=== PATIENT | male | born 2000 | race Caucasian/White ===

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

== ENCOUNTER 2022-07-15 19:01 | Emergency (ER) | payer MEDICAID, SELFPAY ==
[2022-07-15 19:13] VITALS: BP 148/76; PULSE 96; RESP 16; TEMP 36.8; O2SAT 99
--- NOTE | 2022-07-15 19:50 | W.ED.GENAD ---
Discharge Plan Disposition Patient Disposition: HOME Condition: Stable Discharge Details Clinical Impression: Coital headache Primary Care Provider: Florence Veliz ED Provider: Wayne Schneider Home Meds and New Rx's Prescriptions: Continued epinephrine [EpiPen 2-Roberto] 0.3 mg/0.3 mL auto-injector 0.3 mg IM Q5-15M PRN (Reason: hypersensitivity reaction) Qty: 1 2RF Rx Instructions: use as needed for allergic reaction- lip or throat swelling albuterol sulfate 2.5 mg /3 mL (0.083 %) solution for nebulization 2.5 mg Inhalation Q4H PRN Qty: 1 0RF albuterol sulfate [ProAir HFA] 90 mcg/actuation HFA aerosol inhaler 2 puff Inhalation Q4H PRN Qty: 1 0RF Vyvanse 70 mg capsule 70 mg PO QAM MDD 1 Qty: 30 0RF benzonatate 100 mg capsule 100 mg PO TID PRN (Reason: cough) Qty: 10 0RF Discharge Instructions Instructions: General Headache (ED) Additional Instructions: [id number] Tylenol and/or Motrin as directed for discomfort. Please watch for new or worsening symptoms and return to the ER for any concerns. At this time we discussed obtaining advanced imaging for further evaluation but using shared decision making have opted to take a more conservative approach. As we discussed please contact your primary care provider on Sunday to discuss your ER visit and need for outpatient reevaluation. There are medications on a daily basis that can help with this if this continues, outpatient referral to neurology may be indicated, as well as more aggressive work-up such as advanced imaging. Discharge Data Discharge Date/Time-TO BE ENTERED AT DEPARTURE: 07/15/22 20:12 Medical Decision Making 21-year-old gentleman who denies significant past medical history reports that he developed a headache both today and yesterday after orgasm. Reports that both episodes of the headache lasted no more than half an hour or so and resolved with vroj-dnm-malfzzo medication. He is currently asymptomatic. Denies family history of CVA, aneurysm, etc. Reports his mother does have migraines and he had migraines in high school but these seem to have resolved. Patient does tell me that he has a primary care provider. Clinically he appears well, nontoxic, neurologically intact. HPI and examination is certainly consistent with a colloidal headache but we did discuss pursuing advanced imaging for further evaluation. We discussed pros and cons of imaging, radiation, etc. At this time he is asymptomatic and is comfortable pursuing a more conservative approach. He would like to avoid any radiation if at all possible. He will continue to monitor symptoms closely and discussed following up with his primary care provider for potential outpatient work-up, imaging, referral to neurology. He does assure me he will return to the ER for new or evolving symptoms. Standard discharge and return precautions were provided. Patient understands, is agreeable to this plan, and has no additional questions or concerns upon discharge. This documentation was generated using [employer] system, please disregard any oddities of phrase or misspellings. Medical Records Medical records reviewed: Yes I reviewed the patient's medical records. HPI General Mode of arrival: ambulatory. Date/Time Provider Initiated Documentation: 07/15/22 19:06. Limitations to Documentation: no limitations. Information obtained by: patient. HPI Narrative: This is a 21-year-old male, denies significant past medical history, reports vaping daily, presenting to the ER for a headache that he developed both yesterday and today after reaching orgasm. Patient states that the headaches is moderate in nature, is present just as he is about to climax, and he is initially in the back of his head but then goes globally, decreases in severity down to a 4 out of 10, is aching, and then resolved completely with [id number]-ggktzvj medications. He is currently asymptomatic. Denies recent illness, trauma, visual changes, neck pain, chest pain, shortness of breath, radiation of his pain, pain in his extremities, numbness, tingling, weakness, pain or swelling in his legs. Patient reports that he had migraines fairly frequently in high school but seemed to have outgrown them in general until these headaches over the past 2 days. He currently has no acute concerns or complaints, is asymptomatic Related Data Home Medications Medication Instructions Recorded Confirmed albuterol sulfate 2.5 mg/3 mL 2.5 mg (3 mL) inhalation Q4H PRN 10/03/18 07/15/22 (0.083 %) solution for nebulization #1 mL albuterol sulfate 90 mcg/actuation 2 puff inhalation Q4H PRN ##1 04/02/20 07/15/22 aerosol inhaler (ProAir HFA) epinephrine 0.3 mg/0.3 mL 0.3 mg (0.3 mL) IM Q5-15M PRN 08/03/20 07/15/22 injection, auto-injector (EpiPen hypersensitivity reaction #1 ea 2-Roberto) benzonatate 100 mg capsule 100 mg PO TID PRN cough #10 caps 09/16/21 07/15/22 lisdexamfetamine 70 mg capsule 70 mg PO QAM #30 caps 01/26/22 07/15/22 (Vyvanse) Previous Rx's Medication Instructions Recorded albuterol sulfate 2.5 mg/3 mL 2.5 mg (3 mL) inhalation Q4H PRN 10/03/18 (0.083 %) solution for nebulization #1 mL albuterol sulfate 90 mcg/actuation 2 puff inhalation Q4H PRN ##1 04/02/20 aerosol inhaler (ProAir HFA) epinephrine 0.3 mg/0.3 mL 0.3 mg (0.3 mL) IM Q5-15M PRN 08/03/20 injection, auto-injector (EpiPen hypersensitivity reaction #1 ea 2-Roberto) benzonatate 100 mg capsule 100 mg PO TID PRN cough #10 caps 09/16/21 lisdexamfetamine 70 mg capsule 70 mg PO QAM #30 caps 01/26/22 (Vyvanse) Allergies Allergy/AdvReac Type Severity Reaction Status Date / Time shrimp Allergy Unknown Swelling/Ed Verified 07/15/22 19:16 jose daniel amoxicillin Allergy Hives Verified 07/15/22 19:16 black flies Allergy Mild Swelling/Ed Uncoded 07/15/22 19:16 jose daniel horse flies Allergy Mild Swelling/Ed Uncoded 07/15/22 19:16 jose daniel Lobster Allergy Unknown Swelling/Ed Uncoded 07/15/22 19:16 jose daniel General Stated Complaint: Headache LAVERN: 4 Review of Systems Constitutional Constitutional: Denies fever(s), Reports headache(s) and Denies weakness Eyes Eyes: Denies change in vision ENT Ears, Nose, Mouth, and Throat: Reports headache(s) and Denies neck pain Cardiovascular Cardiovascular: Denies chest pain and Denies dyspnea Respiratory Respiratory: Denies cough and Denies dyspnea Gastrointestinal Gastrointestinal: Denies abdominal pain, Denies nausea and Denies vomiting Musculoskeletal Musculoskeletal: Denies back pain, Denies neck pain, Denies numbness, Denies stiffness and Denies tingling Integumentary/Breasts Skin/Breast: Denies rash Neurologic Neurologic: Reports headache(s), Denies numbness, Denies tingling and Denies weakness PFS All Active Problems Coital headache (Acute) Hand laceration (Acute) Ingrown toenail of right foot with infection (Acute) Cough (Acute) Irregular heart beat (Acute) Nml holter monitor 01/26 Precordial catch syndrome (Acute) chest pain- on exam, irreg hb with some tachy, ekg obtained - School failure (Acute) DID NOT COMPLETE HIGH SHCOOL- will continue to try get GED and job -2020 Food allergy (Acute) 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- EPIPEN 07/27 Dental abscess (Acute) meds called in 02/24 had abscess same tooth last year Depression (Chronic) mild sadness and cutting will follow 01/25 Healthy adolescent (Acute) Attention deficit hyperactivity disorder (Chronic 12/27/12) Medical History ADHD (attention deficit hyperactivity disorder) Allergic rhinitis (03/07/14) Allergy to amoxicillin Anxiety Asthma BMI (body mass index), pediatric, 5% to less than 85% for age (08/01/16) Depression Exercise-induced asthma (08/01/16) Insomnia (09/23/13) Surgical History Circumcision Myringotomy w/ PE (pressure equalizing) tubes Tonsillectomy and adenoidectomy Urethral meatus, dorsal When he was 18 months old he had corrective surgery Family History Mother Asthma Mental disorder Father Mental disorder Sister Mental disorder Other Heart disease Hyperlipidemia Mental disorder Cancer Hypertension Asthma Grandparent Heart disease Hyperlipidemia Mental disorder Cancer Uterine, Breast Gastric Hypertension Asthma Diabetes Maternal Grandfather Myocardial infarction Maternal Grandmother Myocardial infarction Paternal Grandfather Myocardial infarction Social History Smoking/Tobacco Use Status: Former Tobacco Use Smoking risk assessment performed?: Yes Alcohol Intake: current Alcohol Intake frequency: holidays/special occasions only Drug use: Occasionally Substance use type: marijuana Pets and animals: Yes Pets and animals: cat(s) and dog(s) Do you feel safe at home: Yes Do you feel safe in your relationship?: Yes Additional Social history: FATHER Exam Const General: cooperative, healthy appearing, comfortable and no acute distress Orientation: alert, awake and oriented x3 HENMT Head: normal to inspection, normocephalic and atraumatic Ears: external ears normal, TM's normal bilaterally and EAC's normal General nose exam: external nose normal Face and sinus: normal facial exam Mouth: moist mucous membranes Throat: posterior oropharynx normal Eyes General: appearance normal, both eyes and all related structures Alignment and Position: alignment normal Periorbital: periorbital findings normal Eyelids: eyelids normal Conjunctivae: conjunctivae normal Sclera: sclerae normal Cornea: corneas normal Pupils: PERRL EOM: EOM intact bilaterally Direct ophthalmoscopy: normal light reflex Neck Neck: normal visual inspection, full ROM, no meningeal signs, trachea midline, supple and nontender Resp Effort & Inspection: normal respiratory effort and able to speak in complete sentences Auscultation: clear to auscultation bilaterally Cardio Rate: regular rate Rhythm: regular rhythm GI Palpation: soft and nontender Back/Spine/Pelvis Back: No back tenderness Skin General skin exam: no rashes or lesions noted Neuro General: patient alert, patient awake, patient oriented x3, moves all extremities and no focal motor deficits Cranial Nerves: CN's II-XI intact bilaterally Cognition: normal cognition Speech: speech normal Gait: normal gait Motor: muscle tone normal throughout, strength 5/5 throughout, no pronator drift, no movement abnormalities noted and no fasciculations Sensory Exam: no sensory deficits noted Coordination: ihuwku-re-msgf test normal, Romberg test normal and Does not sway with eyes open Psych Appearance: grossly normal Mental Status: mental status grossly normal Course Vital Signs Vital signs: Vital Signs Temperature 36.8 C 07/15/22 19:13 Pulse 96 H 07/15/22 19:13 Respiratory Rate 16 07/15/22 19:13 Blood Pressure 148/76 H 07/15/22 19:13 Pulse Oximetry 99 07/15/22 19:13 Temperature 36.8 C 07/15/22 19:13 Temperature Source Temporal Artery Scan 07/15/22 19:13 Pulse 96 H 07/15/22 19:13 Respiratory Rate 16 07/15/22 19:13 Respiratory Effort 07/15/22 19:13 Blood Pressure 148/76 H 07/15/22 19:13 Blood Pressure Position Sitting 07/15/22 19:13 Pulse Oximetry 99 07/15/22 19:13 Oxygen Delivery Method Room Air 07/15/22 19:13 Oxygen Flow Rate 0 07/15/22 19:13 Pain Level 1 07/15/22 19:13
== END 2022-07-15 20:12 | disposition home or self-care (01) ==
PROVIDERS: Emergency Provider Physician Assistant
DX: R51.9 Headache, unspecified (principal); J45.909 Unspecified asthma, uncomplicated; Z87.891 Personal history of nicotine dependence
CPT/HCPCS: 99282

== ENCOUNTER 2022-08-25 00:30 | Emergency (ER) | payer MEDICAID, SELFPAY ==
[2022-08-25] VITALS (52 sets, daily range): BP systolic 111–143; BP diastolic 76–97; PULSE 90–106; RESP 10–22; TEMP 36.8–37.1; O2SAT 96–100
--- NOTE | 2022-08-25 00:30 | RT.EKG_ITS ---
APPROVED REPORT Exam: Resting ECG Reason for Exam: chest pain Patient Location: E HR:117 bpm ECG Measurements Heart Rate 117 AXIS ND 147 P 57 QRSd 92 QRS 52 QT 328 T 18 QTc 458 Conclusion Sinus tachycardia...rate> 99 PHysician: no stemi
--- NOTE | 2022-08-25 00:30 | DI.RAD_ITS ---
Exam(s) XR PORTABLE CHEST AP EXAM: XR PORTABLE CHEST AP CLINICAL HISTORY: central chest pain. TECHNIQUE: 2D digital imaging was performed. COMPARISON: CR ABD FLAT UPRIGHT PA CHEST from 08/07/2017 FINDINGS: Single AP portable view. Heart size is upper normal. The mediastinum is not widened. Lungs are clear. No infiltrates nor obvious pleural effusions. IMPRESSION: No acute pulmonary findings on this single AP portable view of the chest. DATA REPOSITORY: RADIATION DOSE DELIVERED:
[2022-08-25 00:53] LABS: Abs Immature Grans 0.19 10^3/uL (0.0-0.06); Absolute Basophil Count 0.06 10^3/uL (0.0-0.2); Absolute Eosinophil Count 0.31 10^3/uL (0.0-0.7); Absolute Lymphocyte Count 3.21 10^3/uL (1.2-3.4); Absolute Monocyte Count 0.79 10^3/uL (0.1-0.8); Absolute Neutrophil Count 3.55 10^3/uL (1.2-6.7); Basophils % 0.7; Eosinophils % 3.8; HCT 46.6 % (40.0-50.0); Immature Grans % 2.3; Lymphocytes % 39.6; MCH 29.2 pg (27.0-33.0); MCHC 34.3 % (32.0-36.0); MCV 85 fL (80-95); MPV 9.2 fL (8.0-11.0); Monocytes % 9.7; Neutrophils % 43.9; Platelet Count 277 10^3/uL (130-400); RBC 5.48 10^6/uL (4.36-5.78); RDW 12.6 % (11.8-14.1); RDW-SD 39.2 fL; WBC 8.11 10^3/uL (4.4-10.8)
--- NOTE | 2022-08-25 01:10 | ED.GENADUL_ITS ---
Discharge Plan Disposition Patient Disposition: Home Condition: Good Discharge Details Chief Complaint: Chest Pain Clinical Impression: Chest discomfort Primary Care Provider: Florence Veliz ED Provider: Leonardo Guadarrama Home Meds and New Rx's Prescriptions: No Action epinephrine [EpiPen 2-Roberto] 0.3 mg/0.3 mL auto-injector 0.3 mg IM Q5-15M PRN (Reason: hypersensitivity reaction) Qty: 1 2RF Rx Instructions: use as needed for allergic reaction- lip or throat swelling albuterol sulfate 2.5 mg /3 mL (0.083 %) solution for nebulization 2.5 mg Inhalation Q4H PRN Qty: 1 0RF albuterol sulfate [ProAir HFA] 90 mcg/actuation HFA aerosol inhaler 2 puff Inhalation Q4H PRN Qty: 1 0RF Vyvanse 70 mg capsule 70 mg PO QAM MDD 1 Qty: 30 0RF benzonatate 100 mg capsule 100 mg PO TID PRN (Reason: cough) Qty: 10 0RF Discharge Instructions Instructions: Chest Pain (ED) Additional Instructions: At this time your work-up is very reassuring. There is no signs of heart failure, heart attack or other significant abnormality. Please take Tylenol or Motrin as needed for pain if it returns. If you notice any worsening of your symptoms, or any new symptoms such as vomiting, diarrhea, fever, chills, shortness of breath, chest pain, numbness, weakness, or fainting , please return immediately to the emergency department for reevaluation. Please follow up with your primary care provider as soon as possible for reassessment and reevaluation. As always, it was a pleasure participating in your medical care today. Referrals: Florence Veliz MD [Primary Care Provider] - Medical Decision Making 21-year-old male with a past medical history of asthma, presents today for evaluation of chest pain. Patient states that the symptoms have been going on for the last 22 hours. It is achy and tight in nature. It lasts for about 30 seconds to 1 minute. Seems to come and go. No exertional component. No recent trauma. No cough, fever, or chills. Patient does vape occasionally, but does not use regular tobacco products. He denies any history of blood clots pulmonary embolisms recent surgeries. Symptoms are improved when he sits up and leans forward. It does not appear to be made worse by anything. No other complaints at this time. No other modifying factors. Physical exam is notably unremarkable. Vital signs stable. No hypoxemia. Bedside ultrasound demonstrates no evidence of pericardial effusion, tamponade, signs of right heart strain, or large wall motion abnormalities. Differential is highest for mild pericarditis versus musculoskeletal component. EKG shows no evidence of STEMI or significant ST elevation. Will give Toradol, GI cocktail, evaluate for atypical cardiac etiology, evaluate for subtle heart strain with proBNP, monitor closely and reassess. 1:53 AM Laboratory work-up normal, troponin normal, proBNP normal, chest x-ray negative for acute process. Symptoms notably clinically inconsistent with ACS, massive PE, pneumothorax or other significant life-threatening abnormality. Suspect mild pericarditis versus precordial catch syndrome/ texidores twinge. Recommend Tylenol or Motrin at home as needed. Discussed red flags which to return. Patient's pain completely gone at time of disposition. I have extensively reviewed the treatment plan and discharge instructions with the patient. I have addressed all patient concerns at this time. The patient was made aware of what symptoms to monitor for that would warrant a return to the emergency department. Discussed the plan with the patient, they demonstrate verbal understanding and agreement with our assessment and plan at this time. The documentation in this chart was dictated using [employer] dictation software. Please excuse any dictation errors. FINDINGS: Lungs: Unremarkable. No consolidation. Pleural spaces: Unremarkable. No pleural effusion. No pneumothorax. Heart/Mediastinum: Unremarkable. No cardiomegaly. Bones/joints: Unremarkable. IMPRESSION: No acute findings. Thank you for allowing us to participate in the care of your patient. Dictated and Authenticated by: Eed Keenan MD 08/25/2022 1:46 AM Eastern Time ([place] & [place]) Sign Out No HPI General Date/Time Provider Initiated Documentation: 08/25/22 00:32 . HPI Narrative: 21-year-old male with a past medical history of asthma, presents today for evaluation of chest pain. Patient states that the symptoms have been going on for the last 22 hours. It is achy and tight in nature. It lasts for about 30 seconds to 1 minute. Seems to come and go. No exertional component. No recent trauma. No cough, fever, or chills. Patient does vape occasionally, but does not use regular tobacco products. He denies any history of blood clots pulmonary embolisms recent surgeries. Symptoms are improved when he sits up and leans forward. It does not appear to be made worse by anything. No other complaints at this time. No other modifying factors. Related Data Home Medications Medication Instructions Recorded Confirmed albuterol sulfate 2.5 mg/3 mL 2.5 mg (3 mL) inhalation Q4H PRN 10/03/18 08/25/22 (0.083 %) solution for nebulization #1 mL albuterol sulfate 90 mcg/actuation 2 puff inhalation Q4H PRN ##1 04/02/20 08/25/22 aerosol inhaler (ProAir HFA) epinephrine 0.3 mg/0.3 mL 0.3 mg (0.3 mL) IM Q5-15M PRN 08/03/20 08/25/22 injection, auto-injector (EpiPen hypersensitivity reaction #1 ea 2-Roberto) benzonatate 100 mg capsule 100 mg PO TID PRN cough #10 caps 09/16/21 07/15/22 lisdexamfetamine 70 mg capsule 70 mg PO QAM #30 caps 01/26/22 08/25/22 (Vyvanse) Previous Rx's Medication Instructions Recorded albuterol sulfate 2.5 mg/3 mL 2.5 mg (3 mL) inhalation Q4H PRN 10/03/18 (0.083 %) solution for nebulization #1 mL albuterol sulfate 90 mcg/actuation 2 puff inhalation Q4H PRN ##1 04/02/20 aerosol inhaler (ProAir HFA) epinephrine 0.3 mg/0.3 mL 0.3 mg (0.3 mL) IM Q5-15M PRN 08/03/20 injection, auto-injector (EpiPen hypersensitivity reaction #1 ea 2-Roberto) benzonatate 100 mg capsule 100 mg PO TID PRN cough #10 caps 09/16/21 lisdexamfetamine 70 mg capsule 70 mg PO QAM #30 caps 01/26/22 (Vyvanse) Allergies Allergy/AdvReac Type Severity Reaction Status Date / Time shrimp Allergy Unknown Swelling/Ed Verified 08/25/22 00:47 jose daniel amoxicillin Allergy Hives Verified 08/25/22 00:47 black flies Allergy Mild Swelling/Ed Uncoded 08/25/22 00:47 jose daniel horse flies Allergy Mild Swelling/Ed Uncoded 08/25/22 00:47 jose daniel Lobster Allergy Unknown Swelling/Ed Uncoded 08/25/22 00:47 jose daniel General Stated Complaint: Chest Pain LAVERN: 3 Review of Systems All systems reviewed & are unremarkable except as noted in HPI and below PFSH All Active Problems (Updated 08/25/22 @ 01:52 by Leonardo Guadarrama DO) Chest discomfort (Acute) Hand laceration (Acute) Ingrown toenail of right foot with infection (Acute) Cough (Acute) Irregular heart beat (Acute) Nml holter monitor 01/26 Precordial catch syndrome (Acute) chest pain- on exam, irreg hb with some tachy, ekg obtained - School failure (Acute) DID NOT COMPLETE HIGH SHCOOL- will continue to try get GED and job -2020 Food allergy (Acute) 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- EPIPEN 07/27 Dental abscess (Acute) meds called in 02/24 had abscess same tooth last year Depression (Chronic) mild sadness and cutting will follow 01/25 Healthy adolescent (Acute) Attention deficit hyperactivity disorder (Chronic 12/27/12) Medical History ADHD (attention deficit hyperactivity disorder) Allergic rhinitis (03/07/14) Allergy to amoxicillin Anxiety Asthma BMI (body mass index), pediatric, 5% to less than 85% for age (08/01/16) Depression Exercise-induced asthma (08/01/16) Insomnia (09/23/13) Surgical History Circumcision Myringotomy w/ PE (pressure equalizing) tubes Tonsillectomy and adenoidectomy Urethral meatus, dorsal When he was 18 months old he had corrective surgery Family History Mother Asthma Mental disorder Father Mental disorder Sister Mental disorder Other Heart disease Hyperlipidemia Mental disorder Cancer Hypertension Asthma Grandparent Heart disease Hyperlipidemia Mental disorder Cancer Uterine, Breast Gastric Hypertension Asthma Diabetes Maternal Grandfather Myocardial infarction Maternal Grandmother Myocardial infarction Paternal Grandfather Myocardial infarction Social History Smoking/Tobacco Use Status: Current-Occasional Tobacco Type: e-cigarettes Smoking risk assessment performed?: Yes Alcohol Intake: current Alcohol Intake frequency: holidays/special occasions only Drug use: Occasionally Substance use type: marijuana Pets and animals: Yes Pets and animals: cat(s) and dog(s) Do you feel safe at home: Yes Do you feel safe in your relationship?: Yes Additional Social history: FATHER Exam Narrative Exam Narrative: 1.Const: Well-nourished, Well-developed, appearing stated age 2.Eyes: PERRL, no conjunctival injection, and symmetrical lids. 3.ENT: Atraumatic external nose and ears. Moist MM. Neck: Symmetric, trachea midline, No thyromegaly. 4.CVS: +S1/S2, No murmurs or gallops. Peripheral pulses 2+ and equal in all extremities. Brisk capillary refill in all extremities. No reproducible chest wall tenderness. 5.RESP: Unlabored respiratory effort. Clear to auscultation bilaterally. No wheezes rales or rhonchi 6.GI: Soft, Nontender/Nondistended, No hepatosplenomegaly. No guarding or rebound. 7.MSK: Normocephalic/Atraumatic, Extremities w/o deformity or ttp No cyanosis or clubbing, Normal movement of all extremities 8.Skin: Warm, Dry. No rashes or lesions. 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 Sensation grossly intact, no focal neurologic deficits. 10.Psych: (AAO) x3. Appropriate mood and affect Course Vital Signs Vital signs: Vital Signs Temperature 37.1 C 08/25/22 00:35 Pulse 106 H 08/25/22 00:35 Respiratory Rate 20 08/25/22 00:35 Blood Pressure 143/89 H 08/25/22 00:35 Pulse Oximetry 100 08/25/22 00:35 Temperature 37.1 C 08/25/22 00:35 Pulse 106 H 08/25/22 00:35 Respiratory Rate 20 08/25/22 00:35 Respiratory Effort 08/25/22 00:50 Respiratory Depth Normal 08/25/22 00:50 Respiratory Pattern Normal 08/25/22 00:50 Blood Pressure 143/89 H 08/25/22 00:35 Blood Pressure Position Supine 08/25/22 00:35 Pulse Oximetry 100 08/25/22 00:35 Oxygen Delivery Method Room Air 08/25/22 00:35 Oxygen Flow Rate 0 08/25/22 00:35 Pain Level 5 08/25/22 00:50 Lab/Test Results Lab/Test Results: Laboratory Tests Range/Units 08/25/22 00:40 WBC (4.4-10.8) 10^3/uL 8.11 RBC (4.36-5.78) 10^6/uL 5.48 Hgb (13.5-17.5) g/dL 16.0 Hct (40.0-50.0) % 46.6 MCV (80-95) fL 85 MCH (27.0-33.0) pg 29.2 MCHC (32.0-36.0) % 34.3 RDW (11.8-14.1) % 12.6 Plt Count (130-400) 10^3/uL 277 MPV (8.0-11.0) fL 9.2 Immature Gran % 2.3 Neutrophils % 43.9 Lymphocytes % 39.6 Monocytes % 9.7 Eosinophils % 3.8 Basophils % 0.7 Nucleated RBC % (0.0-0.3) % 0.0 Absolute Neutrophils (1.2-6.7) 10^3/uL 3.55 Absolute Lymphocytes (1.2-3.4) 10^3/uL 3.21 Absolute Monocytes (0.1-0.8) 10^3/uL 0.79 Absolute Eosinophils (0.0-0.7) 10^3/uL 0.31 Absolute Basophils (0.0-0.2) 10^3/uL 0.06 POCUS Exam (ED) Limited Cardiac Exam DATE OF EXAM: 08/25/22 TIME OF EXAM: 01:15 PROVIDER THAT PERFORMED THE STUDY: Leonardo Guadarrama IS THIS A REPEAT EXAM DURING THIS ENCOUNTER: no REASON FOR EXAM: Chest pain VISUALIZED STRUCTURES: Left atrium, Left ventricle, Right ventricle and Interventricular septum VIEW OBTAINED: Parasternal long-axis and Parasternal short-axis PERTINENT FINDINGS/IMPRESSION: No apparent abnormalities Exam complete
[2022-08-25] MEDS: Ketorolac 15 MG/ML VIAL IVP (01:15)
[2022-08-25] MEDS: Lidocaine 2% Viscous 1 ML Solution (01:16)
[2022-08-25 01:17] LABS: ALT 79 U/L (16-63); AST 30 U/L (15-37); Albumin 4.3 g/dL (3.4-5.0); Alkaline Phosphatase 63 U/L (46-116); Anion Gap 9.1 mmol/L (3-11); BUN 16 mg/dL (7-18); CO2 29.9 mmol/L (21.0-32.0); CREATININE 1.2 mg/dL (0.70-1.30); Calcium 8.7 mg/dL (8.5-10.1); Chloride 100 mmol/L (98-107); Estimated GFR 89.34 (mL/min/1.73m2); Glucose 108 mg/dL (74-106); NT-proBNP 7 pg/mL (<300); Potassium 3.7 mmol/L (3.5-5.1); Sodium 139 mmol/L (136-145); Total Protein 7.6 g/dL (6.4-8.2); Troponin I < 50 ng/L (<or=60)
[2022-08-25] MEDS: Mylanta Suspension 30 ML CUP (01:19)
--- NOTE | 2022-08-25 01:48 | DI.VRAD_ITS ---
PROCEDURE INFORMATION: Exam: XR Chest Exam date and time: 08/25/2022 1:05 AM Age: 21 years old Clinical indication: Chest wall pain; Additional info: Chest pain TECHNIQUE: Imaging protocol: Radiologic exam of the chest. Views: 1 view. COMPARISON: CR ABD FLAT UPRIGHT PA CHEST 08/07/2017 2:40 PM FINDINGS: Lungs: Unremarkable. No consolidation. Pleural spaces: Unremarkable. No pleural effusion. No pneumothorax. Heart/Mediastinum: Unremarkable. No cardiomegaly. Bones/joints: Unremarkable. IMPRESSION: No acute findings. Dictated and Authenticated by: Ede Keenan MD. Ordering:RICK Patterson MD
== END 2022-08-25 01:59 | disposition home or self-care (01) ==
PROVIDERS: Emergency Provider Student in an Organized Health Care Education/Training Program
DX: R07.89 Other chest pain (principal); J45.990 Exercise induced bronchospasm; F90.9 Attention-deficit hyperactivity disorder, unspecified type; F17.290 Nicotine dependence, other tobacco product, uncomplicated
CPT/HCPCS: 80053; 93005; 93308; 96374; 99284; 71045; 83880; 84484; 85025; 93010; 99285; J1885

== ENCOUNTER 2022-10-14 02:34 | Emergency (ER) | payer MEDICAID, SELFPAY ==
[2022-10-14 02:39] VITALS: BP 148/88; PULSE 90; RESP 18; TEMP 36.7; O2SAT 99
--- NOTE | 2022-10-14 02:49 | W.ED.GENAD ---
Discharge Plan Disposition Patient Disposition: Home Condition: Good Discharge Details Clinical Impression: Acute right otitis media, Dental infection Primary Care Provider: Florence Veliz ED Provider: Leonardo Guadarrama Home Meds and New Rx's Prescriptions: New clindamycin HCl 150 mg capsule 450 mg PO Q6H 7 Days Qty: 84 0RF No Action epinephrine [EpiPen 2-Roberto] 0.3 mg/0.3 mL auto-injector 0.3 mg IM Q5-15M PRN (Reason: hypersensitivity reaction) Qty: 1 2RF Rx Instructions: use as needed for allergic reaction- lip or throat swelling albuterol sulfate 2.5 mg /3 mL (0.083 %) solution for nebulization 2.5 mg Inhalation Q4H PRN Qty: 1 0RF albuterol sulfate [ProAir HFA] 90 mcg/actuation HFA aerosol inhaler 2 puff Inhalation Q4H PRN Qty: 1 0RF Vyvanse 70 mg capsule 70 mg PO QAM MDD 1 Qty: 30 0RF benzonatate 100 mg capsule 100 mg PO TID PRN (Reason: cough) Qty: 10 0RF Discharge Instructions Instructions: Dental Abscess (ED), Ear Infection (ED) Additional Instructions: At this time you have an ear infection in your right ear, but also the start of a dental infection. Please take the antibiotic clindamycin as directed. It is been sent to your pharmacy on file. Please make sure to take this with a probiotic which you can get [id number] or by eating yogurt with live culture to prevent any diarrhea while on the antibiotic. If you notice any worsening of your symptoms, or any new symptoms such as vomiting, diarrhea, fever, chills, shortness of breath, chest pain, numbness, weakness, or fainting , please return immediately to the emergency department for reevaluation. Please follow up with your primary care provider as soon as possible for reassessment and reevaluation. As always, it was a pleasure participating in your medical care today. Referrals: Florence Veliz MD [Primary Care Provider] - Medical Decision Making This is a 21-year-old male with a past medical history of reactive airway disease, congestion, occasional chills, and right-sided dental ache. Symptoms have been present for the last 3 to 5 days. He denies any vomiting or diarrhea. He denies any significant ear pain. He has had a history of a tonsillectomy. He denies any significant cough. No other complaints at this time. He did test himself for COVID at home and this was negative. Exam demonstrates mild right-sided otitis media. Mild right lower dental caries. No evidence clinically of pneumonia or other significant abnormality. Home COVID test is negative. Suspect the patient had an initial mild viral upper respiratory infection which is now transitioned into a mild right-sided otitis media, compounded by his dental issue. We will give clindamycin for treatment of the ear and of the tooth, especially in light of his amoxicillin/penicillin allergy. Patient refuses dental block at this time. Discussed red flags for which to return. I have extensively reviewed the treatment plan and discharge instructions with the patient. I have addressed all patient concerns at this time. The patient was made aware of what symptoms to monitor for that would warrant a return to the emergency department. Discussed the plan with the patient, they demonstrate verbal understanding and agreement with our assessment and plan at this time. The documentation in this chart was dictated using [employer] dictation software. Please excuse any dictation errors. HPI General Date/Time Provider Initiated Documentation: 10/14/22 02:40. HPI Narrative: This is a 21-year-old male with a past medical history of reactive airway disease, congestion, occasional chills, and right-sided dental ache. Symptoms have been present for the last 3 to 5 days. He denies any vomiting or diarrhea. He denies any significant ear pain. He has had a history of a tonsillectomy. He denies any significant cough. No other complaints at this time. He did test himself for COVID at home and this was negative. Related Data Home Medications Medication Instructions Recorded Confirmed albuterol sulfate 2.5 mg/3 mL 2.5 mg (3 mL) inhalation Q4H PRN 10/03/18 08/25/22 (0.083 %) solution for nebulization #1 mL albuterol sulfate 90 mcg/actuation 2 puff inhalation Q4H PRN ##1 04/02/20 08/25/22 aerosol inhaler (ProAir HFA) epinephrine 0.3 mg/0.3 mL 0.3 mg (0.3 mL) IM Q5-15M PRN 08/03/20 08/25/22 injection, auto-injector (EpiPen hypersensitivity reaction #1 ea 2-Roberto) benzonatate 100 mg capsule 100 mg PO TID PRN cough #10 caps 09/16/21 07/15/22 lisdexamfetamine 70 mg capsule 70 mg PO QAM #30 caps 01/26/22 08/25/22 (Vyvanse) clindamycin HCl 150 mg capsule 450 mg PO Q6H 7 days #84 caps 10/14/22 Previous Rx's Medication Instructions Recorded albuterol sulfate 2.5 mg/3 mL 2.5 mg (3 mL) inhalation Q4H PRN 10/03/18 (0.083 %) solution for nebulization #1 mL albuterol sulfate 90 mcg/actuation 2 puff inhalation Q4H PRN ##1 04/02/20 aerosol inhaler (ProAir HFA) epinephrine 0.3 mg/0.3 mL 0.3 mg (0.3 mL) IM Q5-15M PRN 08/03/20 injection, auto-injector (EpiPen hypersensitivity reaction #1 ea 2-Roberto) benzonatate 100 mg capsule 100 mg PO TID PRN cough #10 caps 09/16/21 lisdexamfetamine 70 mg capsule 70 mg PO QAM #30 caps 01/26/22 (Vyvanse) clindamycin HCl 150 mg capsule 450 mg PO Q6H 7 days #84 caps 10/14/22 Allergies Allergy/AdvReac Type Severity Reaction Status Date / Time shrimp Allergy Unknown Swelling/Ed Verified 08/25/22 00:47 jose daniel amoxicillin Allergy Hives Verified 08/25/22 00:47 black flies Allergy Mild Swelling/Ed Uncoded 08/25/22 00:47 jose daniel horse flies Allergy Mild Swelling/Ed Uncoded 08/25/22 00:47 jose daniel Lobster Allergy Unknown Swelling/Ed Uncoded 08/25/22 00:47 jose daniel General Stated Complaint: Sorethroat LAVERN: 4 Review of Systems All systems reviewed & are unremarkable except as noted in HPI and below PFSH All Active Problems Acute right otitis media (Acute) Dental infection (Acute) Hand laceration (Acute) Ingrown toenail of right foot with infection (Acute) Cough (Acute) Irregular heart beat (Acute) Nml holter monitor 01/26 Precordial catch syndrome (Acute) chest pain- on exam, irreg hb with some tachy, ekg obtained - School failure (Acute) DID NOT COMPLETE HIGH SHCOOL- will continue to try get GED and job -2020 Food allergy (Acute) 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- EPIPEN 07/27 Dental abscess (Acute) meds called in 02/24 had abscess same tooth last year Depression (Chronic) mild sadness and cutting will follow 01/25 Healthy adolescent (Acute) Attention deficit hyperactivity disorder (Chronic 12/27/12) Medical History ADHD (attention deficit hyperactivity disorder) Allergic rhinitis (03/07/14) Allergy to amoxicillin Anxiety Asthma BMI (body mass index), pediatric, 5% to less than 85% for age (08/01/16) Depression Exercise-induced asthma (08/01/16) Insomnia (09/23/13) Surgical History Circumcision Myringotomy w/ PE (pressure equalizing) tubes Tonsillectomy and adenoidectomy Urethral meatus, dorsal When he was 18 months old he had corrective surgery Family History Mother Asthma Mental disorder Father Mental disorder Sister Mental disorder Other Heart disease Hyperlipidemia Mental disorder Cancer Hypertension Asthma Grandparent Heart disease Hyperlipidemia Mental disorder Cancer Uterine, Breast Gastric Hypertension Asthma Diabetes Maternal Grandfather Myocardial infarction Maternal Grandmother Myocardial infarction Paternal Grandfather Myocardial infarction Social History Smoking/Tobacco Use Status: Current-Occasional Tobacco Type: e-cigarettes Smoking risk assessment performed?: Yes Alcohol Intake: current Alcohol Intake frequency: holidays/special occasions only Drug use: Occasionally Substance use type: marijuana Pets and animals: Yes Pets and animals: cat(s) and dog(s) Do you feel safe at home: Yes Do you feel safe in your relationship?: Yes Additional Social history: FATHER Exam Narrative Exam Narrative: 1.Const: Well-nourished, Well-developed, appearing stated age 2.Eyes: PERRL, no conjunctival injection, and symmetrical lids. 3.ENT: Atraumatic external nose and ears. Moist MM. Neck: Symmetric, trachea midline, No thyromegaly. No erythema in the posterior oropharynx. No significant abnormalities. Right lower posterior molar demonstrates evidence of dental carry, no periapical abscess. Right tympanic membrane demonstrates notable purulent effusion in the lower third. Left tympanic membrane is montero and pearly. 4.CVS: +S1/S2, No murmurs or gallops. Peripheral pulses 2+ and equal in all extremities. Brisk capillary refill in all extremities. 5.RESP: Unlabored respiratory effort. Clear to auscultation bilaterally. No wheezes rales or rhonchi 6.GI: Soft, Nontender/Nondistended, No hepatosplenomegaly. No guarding or rebound. 7.MSK: Normocephalic/Atraumatic, Extremities w/o deformity or ttp No cyanosis or clubbing, Normal movement of all extremities 8.Skin: Warm, Dry. No rashes or lesions. 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 Sensation grossly intact, no focal neurologic deficits. 10.Psych: (AAO) x3. Appropriate mood and affect Course Vital Signs Vital signs: Vital Signs Temperature 36.7 C 10/14/22 02:39 Pulse 90 10/14/22 02:39 Respiratory Rate 18 10/14/22 02:39 Blood Pressure 148/88 H 10/14/22 02:39 Pulse Oximetry 99 10/14/22 02:39 Temperature 36.7 C 10/14/22 02:39 Temperature Source Oral 10/14/22 02:39 Pulse 90 10/14/22 02:39 Respiratory Rate 18 10/14/22 02:39 Blood Pressure 148/88 H 10/14/22 02:39 Blood Pressure Position Sitting 10/14/22 02:39 Pulse Oximetry 99 10/14/22 02:39 Oxygen Delivery Method Room Air 10/14/22 02:39 Oxygen Flow Rate 0 10/14/22 02:39 Pain Level 5 10/14/22 02:39
== END 2022-10-14 03:01 | disposition home or self-care (01) ==
PROVIDERS: Emergency Provider Student in an Organized Health Care Education/Training Program
DX: H66.91 Otitis media, unspecified, right ear (principal); K04.7 Periapical abscess without sinus
CPT/HCPCS: 99283; 99284

== ENCOUNTER 2024-06-28 16:28 | Emergency (ER) | payer MEDICAID, SELFPAY ==
[2024-06-28 16:31] VITALS: BP 106/84; PULSE 107; RESP 16; TEMP 36.4; O2SAT 98
--- NOTE | 2024-06-28 16:59 | ED.GENADUL_ITS ---
Discharge Plan Disposition Patient Disposition: Home Discharge Details Clinical Impression: Acute otitis media, Ingrowing toenail with infection Primary Care Provider: Unknown,Unknown ED Provider: Dunia Rodriguez Home Meds and New Rx's Prescriptions: New doxycycline hyclate 100 mg capsule 100 mg PO BID 7 Days Qty: 14 0RF No Action epinephrine [EpiPen 2-Roberto] 0.3 mg/0.3 mL auto-injector 0.3 mg IM Q5-15M PRN (Reason: hypersensitivity reaction) Qty: 1 2RF Rx Instructions: use as needed for allergic reaction- lip or throat swelling albuterol sulfate 2.5 mg /3 mL (0.083 %) solution for nebulization 2.5 mg Inhalation Q4H PRN Qty: 1 0RF albuterol sulfate [ProAir HFA] 90 mcg/actuation HFA aerosol inhaler 2 puff Inhalation Q4H PRN Qty: 1 0RF lisdexamfetamine [Vyvanse] 70 mg capsule 70 mg PO QAM MDD 1 Qty: 30 0RF benzonatate 100 mg capsule 100 mg PO TID PRN (Reason: cough) Qty: 10 0RF Discharge Instructions Instructions: Ingrown toenail Additional Instructions: Please call podiatry first thing Sunday morning to schedule a follow-up appointment and definitive management of your ingrown nail. Please do not put anything in your ears such as Q-tips or eardrops. I have prescribed for you an antibiotic called doxycycline to help treat infection to both your toenail and your ear. Soak your foot in warm water with antibacterial soap at least 2-3 times a day for 15 to 20 minutes at a time. Cover with a nonstick dressing. Bacitracin or triple antibiotic ointment may also be helpful. Keep your toe clean and dry, changing bandage after each soaking and as needed. Elevate your toe above heart level to help keep down swelling. Return to emergency care if develop new fevers, vision changes, protrusion of your ear, drainage from your ear, worsening swelling/redness to your great toe or swelling up the foot, or if you are very worried and need to be rechecked again immediately Referrals: Latosha Max DPM [[facility] STAFF PHYSICIAN] - Discharge Data Discharge Date/Time-TO BE ENTERED AT DEPARTURE: 06/28/24 17:24 HPI General Date/Time Provider Initiated Documentation: 06/28/24 16:35 . HPI Narrative: Chip is a 23-year-old male with history of recurrent ingrown toenail to right great toe who presents to the emergency department for evaluation of persistent swelling/drainage from his right great toe, as well as right ear pain. He reports that he had URI symptoms with cough, runny nose, and sore throat last week. Symptoms have resolved, but he has had right ear pain that started last night. He applied some peroxide last night which provided some pain control today. He denies hearing loss, vision changes, headaches, fever/chills, difficulty swallowing, change in appearance of the ear, drainage from ear. No history of surgery to that ear. He reports that his right great toe has been infected on and off for 8 months. He usually soaks in warm water and does good wound care with peroxide. 3 months ago it started bothering him again, with swelling, redness, and pus drainage from the lateral aspect of his right great toe for the last 3 months. He reports that he has had this toenail removed many times by podiatry. He does not clip his nails, but rather tears his toenails. Physical exam remarkable for significant redness to the distal aspect of the right great toe, with some swelling. Scant serosanguineous drainage from the lateral nail fold with granulation tissue noted, consistent with ingrown toenail/paronychia. No swelling noted to MTP joint or dorsum of foot. Normal gait. right TM noted to be bulging and dull with erythema. No protrusion of ear, pain with manipulation of pinna, or drainage in the ear. Left TM pearly montero and translucent. History and presentation consistent with right otitis media and ingrown nail to R great toe with associated paronychia and surrounding cellulitis. No red flags concerning for mastoiditis or other serious complications of AOM. No red flags concerning for osteomyelitis or other acute complication associated with toenail infection. Will treat with doxycycline to cover both skin alan/MRSA and strep throat with penicillin allergy. Recommend follow-up with podiatry for further evaluation/management of ingrown toenail. Reviewed discharge instructions, including AOM instructions and care of infected ingrown toenail, healthy nail hygiene, red flags indicating need for return to emergency care, and importance of follow-up with podiatry for definitive management. He is agreeable with plan of care. Related Data Home Medications ?Medication ?Instructions ?Recorded ?Confirmed albuterol sulfate 2.5 mg/3 mL 2.5 mg (3 mL) inhalation Q4H PRN 10/03/18 06/28/24 (0.083 %) solution for nebulization #1 mL albuterol sulfate 90 mcg/actuation 2 puff inhalation Q4H PRN ##1 04/02/20 06/28/24 aerosol inhaler (ProAir HFA) epinephrine 0.3 mg/0.3 mL 0.3 mg (0.3 mL) IM Q5-15M PRN 08/03/20 06/28/24 injection, auto-injector (EpiPen hypersensitivity reaction #1 ea 2-Roberto) benzonatate 100 mg capsule 100 mg PO TID PRN cough #10 caps 09/16/21 06/28/24 lisdexamfetamine 70 mg capsule 70 mg PO QAM #30 caps 01/26/22 06/28/24 (Vyvanse) doxycycline hyclate 100 mg capsule 100 mg PO BID 7 days #14 caps 06/28/24 Previous Rx's ?Medication ?Instructions ?Recorded albuterol sulfate 2.5 mg/3 mL 2.5 mg (3 mL) inhalation Q4H PRN 10/03/18 (0.083 %) solution for nebulization #1 mL albuterol sulfate 90 mcg/actuation 2 puff inhalation Q4H PRN ##1 04/02/20 aerosol inhaler (ProAir HFA) epinephrine 0.3 mg/0.3 mL 0.3 mg (0.3 mL) IM Q5-15M PRN 08/03/20 injection, auto-injector (EpiPen hypersensitivity reaction #1 ea 2-Roberto) benzonatate 100 mg capsule 100 mg PO TID PRN cough #10 caps 09/16/21 lisdexamfetamine 70 mg capsule 70 mg PO QAM #30 caps 01/26/22 (Vyvanse) doxycycline hyclate 100 mg capsule 100 mg PO BID 7 days #14 caps 06/28/24 Allergies Allergy/AdvReac Type Severity Reaction Status Date / Time shrimp Allergy Unknown Swelling/Ed Verified 08/25/22 00:47 jose daniel amoxicillin Allergy Hives Verified 08/25/22 00:47 black flies Allergy Mild Swelling/Ed Uncoded 08/25/22 00:47 jose daniel horse flies Allergy Mild Swelling/Ed Uncoded 08/25/22 00:47 jose daniel Lobster Allergy Unknown Swelling/Ed Uncoded 08/25/22 00:47 jose daniel General Stated Complaint: EarProblem LAVERN: 4 Review of Systems Narrative: see HPI Exam Const General: cooperative, healthy appearing, comfortable, no acute distress and well developed Nutritional Appearance: average body habitus HENMT Head: normal to inspection Ears: hearing grossly normal bilaterally, TM normal on the right, EAC's normal, mastoids normal and TM abnormal bulging, dull and erythematous General nose exam: external nose normal Resp Effort & Inspection: normal respiratory effort and able to speak in complete sentences Extrem Right lower extremity: foot Details: normal capillary refill, warmth, edema and other (Serosanguineous drainage from lateral nail fold); no tenderness and no ecchymosis Course Vital Signs Vital signs: Vital Signs Temperature 36.4 C 06/28/24 16:31 Pulse 107 H 06/28/24 16:31 Respiratory Rate 16 06/28/24 16:31 Blood Pressure 106/84 06/28/24 16:31 Pulse Oximetry 98 06/28/24 16:31 Temperature 36.4 C 06/28/24 16:31 Pulse 107 H 06/28/24 16:31 Respiratory Rate 16 06/28/24 16:31 Respiratory Effort Normal 06/28/24 16:34 Blood Pressure 106/84 06/28/24 16:31 Pulse Oximetry 98 06/28/24 16:31 Pain Level 3 06/28/24 16:31 Medical Decision Making Quality:SDOH Health Related Social Needs: No Data to Display PFSH All Active Problems (Updated 06/28/24 @ 16:55 by Dunia Polanco) Ingrowing toenail with infection (Acute) Acute otitis media (Acute) Hand laceration (Acute) Ingrown toenail of right foot with infection (Acute) Cough (Acute) Irregular heart beat (Acute) Nml holter monitor 01/26 Precordial catch syndrome (Acute) chest pain- on exam, irreg hb with some tachy, ekg obtained - School failure (Acute) DID NOT COMPLETE HIGH SHCOOL- will continue to try get GED and job -2020 Food allergy (Acute) 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- EPIPEN 07/27 Dental abscess (Acute) meds called in 02/24 had abscess same tooth last year Depression (Chronic) mild sadness and cutting will follow 01/25 Healthy adolescent (Acute) Attention deficit hyperactivity disorder (Chronic 12/27/12) Medical History ADHD (attention deficit hyperactivity disorder) Allergic rhinitis (03/07/14) Allergy to amoxicillin Anxiety Asthma BMI (body mass index), pediatric, 5% to less than 85% for age (08/01/16) Depression Exercise-induced asthma (08/01/16) Insomnia (09/23/13) Surgical History Circumcision Myringotomy w/ PE (pressure equalizing) tubes Tonsillectomy and adenoidectomy Urethral meatus, dorsal When he was 18 months old he had corrective surgery Family History Mother Asthma Mental disorder Father Mental disorder Sister Mental disorder Other Heart disease Hyperlipidemia Mental disorder Cancer Hypertension Asthma Grandparent Heart disease Hyperlipidemia Mental disorder Cancer Uterine, Breast Gastric Hypertension Asthma Diabetes Maternal Grandfather Myocardial infarction Maternal Grandmother Myocardial infarction Paternal Grandfather Myocardial infarction Social History Smoking/Tobacco Use Status: Current-Occasional Tobacco Type: e-cigarettes Smoking risk assessment performed?: Yes Alcohol Intake: current Alcohol Intake frequency: a few times a month Drug use: Occasionally Substance use type: marijuana Pets and animals: Yes Pets and animals: cat(s) and dog(s) Do you feel safe at home: Yes Do you feel safe in your relationship?: Yes Additional Social history: FATHER
[2024-06-28] MEDS: Doxycycline Hyclate 100 MG CAP PO (17:19)
== END 2024-06-28 17:24 | disposition home or self-care (01) ==
PROVIDERS: Emergency Provider Nurse Practitioner Family
DX: H66.91 Otitis media, unspecified, right ear (principal); L60.0 Ingrowing nail; L08.9 Local infection of the skin and subcutaneous tissue, unspecified
CPT/HCPCS: 99283; 99284

== ENCOUNTER 2024-09-10 21:58 | Outpatient (REF) | payer MEDICAID, SELFPAY ==
[2024-09-12 11:28] LABS: Chlamydia Result Negative (Negative)
[2024-09-12 11:46] LABS: GC Result Positive (Negative)
== END 2024-09-10 21:59 | disposition home or self-care (01) ==
LOC: LBN 21:58
PROVIDERS: Visit Provider Physician Assistant
DX: N39.0 Urinary tract infection, site not specified (principal); Z11.3 Encounter for screening for infections with a predominantly sexual mode of transmission
CPT/HCPCS: 87491; 87591; 87086

== ENCOUNTER 2024-09-15 17:01 | Emergency (ER) | payer MEDICAID, SELFPAY ==
[2024-09-15] VITALS (14 sets, daily range): BP systolic 126–164; BP diastolic 70–99; PULSE 83–97; RESP 15–16; TEMP 36.1; O2SAT 96–100
--- NOTE | 2024-09-15 17:19 | ED.GENADUL_ITS ---
Discharge Plan Disposition Patient Disposition: Home Condition: Stable Discharge Details Clinical Impression: Vomiting, Hematemesis Primary Care Provider: Unknown,Unknown ED Provider: Michael Blood Home Meds and New Rx's Prescriptions: New ondansetron 4 mg tablet,disintegrating 4 mg PO Q8H PRN (Reason: nausea and vomiting) Qty: 30 0RF Continued epinephrine [EpiPen 2-Roberto] 0.3 mg/0.3 mL auto-injector 0.3 mg IM Q5-15M PRN (Reason: hypersensitivity reaction) Qty: 1 2RF Rx Instructions: use as needed for allergic reaction- lip or throat swelling doxycycline hyclate 100 mg capsule 100 mg PO BID Qty: 14 0RF nystatin 100,000 unit/gram powder 1 applic topical TID Qty: 30 0RF Rx Instructions: Apply to groin folds neomycin-polymyxin B-dexameth [Maxitrol] 3.5mg/mL-10,000 unit/mL-0.1 % drops,suspension See Rx Instructions .Route Q12H Qty: 5 0RF Rx Instructions: Apply to the toe every 12 hours; Apply to the TOE. Do NOT apply to eyes. Discard once the toe is healed. albuterol sulfate 2.5 mg /3 mL (0.083 %) solution for nebulization 2.5 mg Inhalation Q4H PRN Qty: 1 0RF albuterol sulfate [ProAir HFA] 90 mcg/actuation HFA aerosol inhaler 2 puff Inhalation Q4H PRN Qty: 1 0RF Discharge Instructions Additional Instructions: Your blood work and exam today were reassuring. 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 HPI General Mode of arrival: ambulatory . Date/Time Provider Initiated Documentation: 09/15/24 17:02 . Limitations to Documentation: no limitations . Information obtained by: patient . History of Present Illness 23 year old M presents to the emergency department with the chief complaint of n/v, streaks of blood, described as moderate, Patient started experiencing this hour(s) (8) and it has been now resolved. No relieving factors improve symptom(s), No exacerbating factors reported . Patient notes no other symptoms. and nausea/vomiting; denies fever/chills and shortness of breath. Patient did receive the following treatments prior to arrival, none Related Data Home Medications ?Medication ?Instructions ?Recorded ?Confirmed albuterol sulfate 2.5 mg/3 mL 2.5 mg (3 mL) inhalation Q4H PRN 18 09/15/24 (0.083 %) solution for nebulization #1 mL albuterol sulfate 90 mcg/actuation 2 puff inhalation Q4H PRN ##1 04/02/20 09/15/24 aerosol inhaler (ProAir HFA) epinephrine 0.3 mg/0.3 mL 0.3 mg (0.3 mL) IM Q5-15M PRN 08/03/20 09/15/24 injection, auto-injector (EpiPen hypersensitivity reaction #1 ea 2-Roberto) [id number] 3.5 See Rx Instructions .Route Q12H #5 07/21/24 09/15/24 mg/mL-10,000 unit/mL-0.1% eye mL drops (Maxitrol) doxycycline hyclate 100 mg capsule 100 mg PO BID #14 caps 09/10/24 09/15/24 nystatin 100,000 unit/gram topical 1 applic topical TID #30 grams 09/10/24 09/15/24 powder ondansetron 4 mg disintegrating 4 mg PO Q8H PRN nausea and 09/15/24 tablet vomiting #30 tabs Previous Rx's ?Medication ?Instructions ?Recorded albuterol sulfate 2.5 mg/3 mL 2.5 mg (3 mL) inhalation Q4H PRN 10/03/18 (0.083 %) solution for nebulization #1 mL albuterol sulfate 90 mcg/actuation 2 puff inhalation Q4H PRN ##1 04/02/20 aerosol inhaler (ProAir HFA) epinephrine 0.3 mg/0.3 mL 0.3 mg (0.3 mL) IM Q5-15M PRN 08/03/20 injection, auto-injector (EpiPen hypersensitivity reaction #1 ea 2-Roberto) [id number] 3.5 See Rx Instructions .Route Q12H #5 07/21/24 mg/mL-10,000 unit/mL-0.1% eye mL drops (Maxitrol) doxycycline hyclate 100 mg capsule 100 mg PO BID #14 caps 09/10/24 nystatin 100,000 unit/gram topical 1 applic topical TID #30 grams 09/10/24 powder ondansetron 4 mg disintegrating 4 mg PO Q8H PRN nausea and 09/15/24 tablet vomiting #30 tabs Allergies Allergy/AdvReac Type Severity Reaction Status Date / Time shrimp Allergy Unknown Swelling/Ed Verified 09/15/24 17:07 jose daniel amoxicillin Allergy Hives Verified 09/15/24 17:07 black flies Allergy Mild Swelling/Ed Uncoded 09/15/24 17:07 jose daniel horse flies Allergy Mild Swelling/Ed Uncoded 09/15/24 17:07 jose daniel Lobster Allergy Unknown Swelling/Ed Uncoded 09/15/24 17:07 jose daniel General Stated Complaint: Abd Prob LAVERN: 3 Review of Systems All systems reviewed & are unremarkable except as noted in HPI and below Constitutional Constitutional: Denies chills, Denies fever(s) and Denies weakness Cardiovascular Cardiovascular: Denies chest pain and Denies dyspnea Respiratory Respiratory: Denies cough and Denies dyspnea Gastrointestinal Gastrointestinal: Denies abdominal pain, Reports nausea and Reports vomiting Integumentary/Breasts Skin/Breast: Denies rash Neurologic Neurologic: Denies weakness Exam Const General: no acute distress Orientation: alert [facility] Head: normal to inspection Ears: external ears normal General nose exam: external nose normal Mouth: moist mucous membranes Eyes General: appearance normal, both eyes and all related structures Neck Neck: normal visual inspection Resp Effort & Inspection: normal respiratory effort and able to speak in complete sentences Cardio Rate: regular rate GI Palpation: soft and nontender Skin General skin exam: no rashes or lesions noted Neuro General: patient alert and patient oriented x3 Extrem General: normal to inspection Psych Mental Status: mental status grossly normal Course Vital Signs Vital signs: Vital Signs Temperature 36.1 C L 09/15/24 17:03 Pulse 95 H 09/15/24 17:03 Respiratory Rate 15 09/15/24 17:03 Blood Pressure 164/99 H 09/15/24 17:03 Pulse Oximetry 98 09/15/24 17:03 Temperature 36.1 C L 09/15/24 17:06 Pulse 95 H 09/15/24 17:06 Respiratory Rate 15 09/15/24 17:06 Respiratory Effort Normal 09/15/24 17:06 Blood Pressure 164/99 H 09/15/24 17:06 Blood Pressure Position Sitting 09/15/24 17:06 Pulse Oximetry 98 09/15/24 17:06 Oxygen Delivery Method Room Air 09/15/24 17:06 Oxygen Flow Rate 0 09/15/24 17:03 Medical Decision Making 23-year-old male who is currently on doxycycline for potential chlamydia comes in after he started vomiting this morning and no streaks of blood. He is currently not having any nausea now and has no abdominal pain. He denies any chest pain, fever, chills. He denies alcohol use. He is well-appearing on exam, hemodynamically stable. He has a soft nontender abdomen, clear lung sounds. I suspect he had nausea vomiting likely potentially from a side effect of the doxycycline he is taken. I suspect Madhavi-Parikh tear. Will check CBC, CMP and treat with Protonix and reassess. Used to drink alcohol and has no signs of liver disease so doubt varices. Patient stable and is asymptomatic. Has no anemia and BUN is normal.delfin- blatchford score 0. Given he is asymptomatic and reassuring workup feel he is stable for discharge. He will follow-up with his PCP or express care if he has residual symptoms return precautions given. Differential Diagnosis Differential Diagnosis: Madhavi-Parikh tear, ulcer Quality:SDOH Health Related Social Needs: No Data to Display PFSH All Active Problems (Updated 09/15/24 @ 18:41 by Michael Blood MD) Hematemesis (Acute) Vomiting (Acute) Pain in right foot (Acute) Hand laceration (Acute) Ingrown toenail of right foot with infection (Acute) Cough (Acute) Irregular heart beat (Acute) Nml holter monitor 01/26 Precordial catch syndrome (Acute) chest pain- on exam, irreg hb with some tachy, ekg obtained - School failure (Acute) DID NOT COMPLETE HIGH SHCOOL- will continue to try get GED and job -2020 Food allergy (Acute) 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- EPIPEN 07/27 Dental abscess (Acute) meds called in 02/24 had abscess same tooth last year Depression (Chronic) mild sadness and cutting will follow 01/25 Healthy adolescent (Acute) Attention deficit hyperactivity disorder (Chronic 12/27/12) Medical History Insomnia (09/23/13) Exercise-induced asthma (08/01/16) BMI (body mass index), pediatric, 5% to less than 85% for age (08/01/16) Allergic rhinitis (03/07/14) Asthma Depression Anxiety Allergy to amoxicillin ADHD (attention deficit hyperactivity disorder) Surgical History Urethral meatus, dorsal When he was 18 months old he had corrective surgery Tonsillectomy and adenoidectomy Myringotomy w/ PE (pressure equalizing) tubes Circumcision Family History Mother Asthma Mental disorder Father Mental disorder Sister Mental disorder Other Heart disease Hyperlipidemia Mental disorder Cancer Hypertension Asthma Grandparent Heart disease Hyperlipidemia Mental disorder Cancer Uterine, Breast Gastric Hypertension Asthma Diabetes Maternal Grandfather Myocardial infarction Maternal Grandmother Myocardial infarction Paternal Grandfather Myocardial infarction Social History Smoking/Tobacco Use Status: Current-Occasional Tobacco Type: e-cigarettes Smoking risk assessment performed?: Yes Alcohol Intake: current Alcohol Intake frequency: a few times a month Drug use: Occasionally Substance use type: marijuana Pets and animals: Yes Pets and animals: cat(s) and dog(s) Do you feel safe at home: Yes Do you feel safe in your relationship?: Yes Additional Social history: FATHER
[2024-09-15 17:52] LABS: Abs Immature Grans 0.07 10^3/uL (0.0-0.06); Absolute Basophil Count 0.02 10^3/uL (0.0-0.2); Absolute Eosinophil Count 0.04 10^3/uL (0.0-0.7); Absolute Lymphocyte Count 1.51 10^3/uL (1.2-3.4); Absolute Monocyte Count 0.63 10^3/uL (0.1-0.8); Basophils % 0.3 %; Eosinophils % 0.6 %; HCT 49.7 % (40.0-50.0); Lymphocytes % 21.7 %; MCH 28.8 pg (27.0-33.0); MCHC 34.2 % (32.0-36.0); MCV 84 fL (80-95); MPV 9.4 fL (8.0-11.0); Neutrophils % 67.4 %; Platelet Count 270 10^3/uL (130-400); RBC 5.91 10^6/uL (4.36-5.78); RDW 12.1 % (11.8-14.1); RDW-SD 37.1 fL; WBC 6.97 10^3/uL (4.4-10.8)
[2024-09-15] MEDS: Pantoprazole 40 MG VIAL IVP (17:53)
[2024-09-15 18:15] LABS: ALT 25 U/L (16-63); AST 14 U/L (15-37); Albumin 4.1 g/dL (3.4-5.0); Alkaline Phosphatase 66 U/L (46-116); Anion Gap 8.7 mmol/L (3-11); BUN 12 mg/dL (7-18); Bilirubin, Total 1.12 mg/dL (0.2-1.0); CO2 28.3 mmol/L (21.0-32.0); CREATININE 1.2 mg/dL (0.70-1.30); Calcium 8.8 mg/dL (8.5-10.1); Chloride 105 mmol/L (98-107); Estimated GFR 88.24 (mL/min/1.73m2); Glucose 117 mg/dL (74-106); Lipase 27 U/L (<78); Magnesium 1.8 mg/dL (1.8-2.4); Potassium 3.7 mmol/L (3.5-5.1); Sodium 142 mmol/L (136-145); Total Protein 7.8 g/dL (6.4-8.2)
[2024-09-15] MEDS: Ondansetron O.D.T. 4 MG TABEF, 3 TABS/BTL PO (18:47)
== END 2024-09-15 18:52 | disposition home or self-care (01) ==
PROVIDERS: Emergency Provider Emergency Medicine
DX: K92.0 Hematemesis (principal); K21.9 Gastro-esophageal reflux disease without esophagitis; F17.290 Nicotine dependence, other tobacco product, uncomplicated
CPT/HCPCS: 36415; 80053; 83690; 86850; 86900; 86901; 96374; 99284; 83735; 85025; J2470